=== PATIENT | female | born 1965 | race Hispanic/Latino ===

== ENCOUNTER 2018-01-13 23:42 | Emergency (ER) | payer BC ==
[2018-01-13] MEDS ORDERED: KETOROLAC 30 MG/ML INJ ONE (23:55)
[2018-01-13] MEDS ORDERED: PROMETHAZINE 25 MG/ML VIAL ONE (23:58)
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
[2018-01-14] MEDS ORDERED: MORPHINE 4 MG/ML SYR ONE (00:52)
[2018-01-14] MEDS ORDERED: ONDANSETRON 4 MG (ODT) TAB ONE (00:52)
--- NOTE | 2018-01-14 07:36 | RAD REPORT ---
EXAM DESCRIPTION: RAD - Wrist Right 3 View - 01/14/2018 12:54 am CLINICAL HISTORY: Arm pain, swelling COMPARISON: None. FINDINGS: A transverse fracture of the distal radius is present involving the radial styloid and art icular surface of the radius. Approximately 2 mm of distraction noted. There is no angulation deformi ty. No distal ulna fracture identifiable. There is no dislocation or periosteal reaction noted. No fo reign body or other soft tissue abnormality. IMPRESSION: Distal radius fracture involving the radial styloid and articular surface of the radius. Approximately 2 distraction along the radial styloid lateral cortical margin.
--- NOTE | 2018-01-14 07:37 | RAD REPORT ---
EXAM DESCRIPTION: RAD - Elbow Right 3 View - 01/14/2018 12:54 am CLINICAL HISTORY: Trauma, arm pain COMPARISON: None. FINDINGS: Distal radius fracture is present detailed on separate wrist report. Otherwise, no fractur e is identified and no elevated posterior fat pad. There is no dislocation or periosteal reaction not ed. No foreign body or other soft tissue abnormality. No other significant finding. IMPRESSION: Negative right elbow examination. Distal radius fracture is detailed on separate report.
== END 2018-01-14 01:34 | disposition home or self-care (01) ==
LOC: ER 23:42
PROC: 2W3CX1Z Immobilization of Right Lower Arm using Splint (ICD-10-PCS; principal; 2018-01-14)
DX: S52.531A Colles' fracture of right radius, initial encounter for closed fracture (principal); W18.30XA Fall on same level, unspecified, initial encounter; Y93.89 Activity, other specified; Y92.9 Unspecified place or not applicable; Z88.1 Allergy status to other antibiotic agents
CPT/HCPCS: 96372; 99284; J2550

== ENCOUNTER 2018-10-22 15:33 | Emergency (ER) | payer BC ==
--- OUTSIDE RECORDS SUMMARY | 2018-10-22 15:35 | XMS REPORT | Clinical Summary ---
:1965 Author Organization [facility] [employer] Address [address] [place] [address] Care Team Providers Name Role Phone Asked, No Pcp Primary Care Provider Unavailable Allergies Not on File Medications No known medications Active Problems No known active problems Encounters Date Type Specialty Care Team Description 12/05/2017 Office Visit Orthopedic Surgery Keith Slaughter II, Stress fracture of left foot, initial encounter (Primary Dx); Tenosynovitis of left foot; Ankle instability, left; Acute left ankle pain; Left foot pain after 10/21/2017 Social History Tobacco Use Types Packs/Day Years Used Date Never Assessed Sex Assigned at Date Recorded Not on file Job Start Date Occupation Industry Not on file Not on file Not on file Travel History Travel Start Travel End No recent travel history available. Last Filed Vital Signs Not on file Plan of Treatment Health Maintenance Due Date Last Done Comments CERVICAL CANCER SCREENING 1988 BREAST CANCER SCREENING 2017 COLON CANCER SCREENING 2017 SHINGLES VACCINES (1 of 2) 2017 INFLUENZA VACCINE 05/03/2018 Procedures Procedure Name Priority Date/Time Associated Diagnosis Comments XR ANKLE 3+ VW LEFT Routine 12/05/2017 4:14 PM Acute left ankle Results for this [facility] pain procedure are in the results section. XR FOOT 2 VW LEFT Routine 12/05/2017 4:13 PM Left foot pain Results for this [facility] procedure are in the results section. after 10/21/2017 Results XR Ankle 3+ Vw Left (12/05/2017 4:14 PM [facility]) Narrative Performed At Three-view images of the left ankle reveals no evidence of acute fracture [facility] or dislocation. Ankle mortise is congruent. Neutral talus first metatarsal alignment. Performing Organization Address City/State/Zipcode Phone Number [facility] [address] [place] [address] XR Foot 2 Vw Left (12/05/2017 4:13 PM [facility]) Narrative Performed At Bilateral weightbearing images of the feet reveals no evidence of acute [facility] fracture or dislocation. Bones well mineralized. Hallux valgus deformities appreciated bilaterally, right greater than left. Performing Organization Address City/State/Zipcode Phone Number [facility] [address] [place] [address] after 10/21/2017 Insurance Payer Benefit Plan / Group Subscriber ID Type Phone Address BCBS BCBS CHOICE PPO/FEDERAL EMPL PPO xxxxxxxxxxxx PPO ([place]) [place] [address] Advance Directives Patient has advance care planning documents on file. For more information, please contact:Remy Barker[address] [place] [address]
[2018-10-22] MEDS ORDERED: KETOROLAC 30 MG/ML INJ ONE (16:14)
--- NOTE | 2018-10-22 16:44 | RAD REPORT ---
EXAM DESCRIPTION: RAD - Hand Right 3 View - 10/22/2018 4:35 pm CLINICAL HISTORY: Slip and fall, pain in the fourth and fifth digit region COMPARISON: Right wrist January 2018. FINDINGS: No acute fracture deformity is identifiable. There is no dislocation or periosteal reactio n noted. IP joint degenerative changes are present without spurring or erosive component. Degenerati ve changes are present at the trapezium first metacarpal articulation. Slight widening of the scapholunate joint space seen. There is old radial styloid fracture. No air or foreign body in the soft tissues. IMPRESSION: No acute fracture confirmed on this study. Patient has degenerative change and old radial styloid fracture and widening of the scapholunate join t space that is also likely the sequela of the January 2018 injury.
--- NOTE | 2018-10-22 16:45 | ER ---
Nurse's Notes [facility] Name: Tracey Mckeon Age: 53 yrs Sex: Female : 1965 Arrival Date: 10/22/2018 Time: 15:36 Bed 30 Private MD: Diagnosis: Contusion of right hand Presentation: 10/22 15:45 Presenting complaint: Patient states: Reports trip and fall hitting right hand on aj concrete last night. Swelling and bruising to right hand. Transition of care: patient was not received from another setting of care. Onset of symptoms was October 21, 2018. Risk Assessment: Do you want to hurt yourself or someone else? Patient reports no desire to harm self or others. Initial Sepsis Screen: Does the patient meet any 2 criteria? No. Patient's initial sepsis screen is negative. Does the patient have a suspected source of infection? No. Patient's initial sepsis screen is negative. Care prior to arrival: None. 15:45 Method Of Arrival: Ambulatory 15:45 Acuity: ROSA 4 Triage Assessment: 15:46 General: Appears in no apparent distress. comfortable, Behavior is calm, cooperative, aj appropriate for age. Pain: Complains of pain in right hand. Neuro: Level of Consciousness is awake, alert, obeys commands, Oriented to person, place, time, situation, Appropriate for age. Respiratory: Airway is patent Respiratory effort is even, unlabored, Respiratory pattern is regular, symmetrical. Derm: Skin is intact, is healthy with good turgor, Skin is pink, warm \\T\\ dry. normal, Bruising that is brown, on right hand. Musculoskeletal: Swelling present in right hand. 16:00 Injury Description: contusion. 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 - Social history:: Smoking status: Patient uses tobacco products, smokes one-half pack cigarettes per day, Patient uses alcohol, admits to "couple of beers" a day. - Ebola Screening: : Patient negative for fever greater than or equal to 101.5 degrees Fahrenheit, and additional compatible Ebola Virus Disease symptoms Patient denies exposure to infectious person Patient denies travel to an Ebola-affected area in the 21 days before illness onset No symptoms or risks identified at this time. Screenin:55 Abuse screen: Denies threats or abuse. Nutritional screening: No deficits noted. tl3 Tuberculosis screening: No symptoms or risk factors identified. Fall Risk None identified. Assessment: 15:55 General: Appears in no apparent distress. well groomed, well developed, well nourished, tl3 Behavior is calm, cooperative, appropriate for age. Pain: Complains of pain in right hand. Neuro: Level of Consciousness is awake, alert, obeys commands, Oriented to person, place, time, situation, Appropriate for age. Cardiovascular: Capillary refill < 3 seconds in right fingers Patient's skin is warm and dry. Respiratory: Airway is patent Respiratory effort is even, unlabored, Respiratory pattern is regular, symmetrical. GI: No signs and/or symptoms were reported involving the gastrointestinal system. : No signs and/or symptoms were reported regarding the genitourinary system. EENT: No signs and/or symptoms were reported regarding the EENT system. Derm: No signs and/or symptoms reported regarding the dermatologic system. Musculoskeletal: Reports pain in right hand since last night, tripped on street curb and fell forward onto street. Right hand bruised and swollen, able to move fingers freely. Vital Signs: 15:46 BP 149 / 93; Pulse 73; Resp 20; Temp 98.1; Pulse Ox 100% on R/A; Weight 108.86 kg; aj Height 5 ft. 3 in. (160.02 cm); 17:04 BP 135 / 78; Pulse 78; Resp 18; Pulse Ox 100% on R/A; Pain 0/10; mg2 15:46 Body Mass Index 42.51 (108.86 kg, 160.02 cm) aj ED Course: 15:36 Patient arrived in ED. rg4 15:45 Triage completed. aj 15:46 Arm band placed on left wrist. Patient placed in an exam room. aj 15:48 Mahamed Leija MD is Attending Physician. tw4 15:55 Nandini Trevizo, HAVEN is Primary Nurse. tl3 15:55 ED physician to see patient. tl3 15:55 Patient has correct armband on for positive identification. Call light in reach. tl3 15:55 No provider procedures requiring assistance completed. Patient did not have IV access tl3 during this emergency room visit. 17:04 Velcro wrist splint applied to right wrist. mg2 Administered Medications: 16:09 Drug: TORadol 60 mg Route: IM; Site: left gluteus; mg2 16:47 Follow up: Response: No adverse reaction; Marked relief of symptoms mg2 Outcome: 16:45 Discharge ordered by . jason 17:05 Discharged to home ambulatory. mg2 17:05 Condition: stable 17:05 Discharge instructions given to patient, Instructed on discharge instructions, follow up and referral plans. medication usage, Demonstrated understanding of instructions, follow-up care, medications, splint care, Prescriptions given X 2. 17:12 Patient left the ED. mg2 Signatures: Elke Boss RN RN Ana Laura Lopez rg4 Mahamed Leija MD MD tw4 Nandini Trevizo RN RN tl3 Lloyd Graves RN RN mg2
--- NOTE | 2018-10-22 16:46 | EDPHYS ---
Physician Documentation [facility] Name: Tracey Mckeon Age: 53 yrs Sex: Female : 1965 Arrival Date: 10/22/2018 Time: 15:36 Bed 30 Private MD: ED Physician Mahamed Leija HPI: 10/22 16:49 This 53 yrs old Female presents to ER via Ambulatory with complaints of Hand tw4 Injury. 16:49 The patient or guardian reports a contusion, pain. The complaints affect the right hand tw4 diffusely. Context: The problem was sustained outdoors, resulted from a fall. Onset: The symptoms/episode began/occurred today. Modifying factors: The symptoms are alleviated by nothing, the symptoms are aggravated by movement. Associated signs and symptoms: The patient has no apparent associated signs or symptoms. Severity of symptoms: At their worst the symptoms were moderate, in the emergency department the symptoms are unchanged. The patient has not experienced similar symptoms in the past. 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 - Social history:: Smoking status: Patient uses tobacco products, smokes one-half pack cigarettes per day, Patient uses alcohol, admits to "couple of beers" a day. - Ebola Screening: : Patient negative for fever greater than or equal to 101.5 degrees Fahrenheit, and additional compatible Ebola Virus Disease symptoms Patient denies exposure to infectious person Patient denies travel to an Ebola-affected area in the 21 days before illness onset No symptoms or risks identified at this time. ROS: 16:49 Constitutional: Negative for fever, chills, and weight loss, Cardiovascular: Negative tw4 for chest pain, palpitations, and edema, Respiratory: Negative for shortness of breath, cough, wheezing, and pleuritic chest pain, Abdomen/GI: Negative for abdominal pain, nausea, vomiting, diarrhea, and constipation. 16:49 Neuro: Negative for headache, weakness, numbness, tingling, and seizure, Psych: Negative for depression, anxiety, suicide ideation, homicidal ideation, and hallucinations. 16:49 MS/extremity: Positive for contusion, pain, swelling, tenderness, of the dorsum of right hand. Exam: 16:49 Constitutional: This is a well developed, well nourished patient who is awake, alert, tw4 and in no acute distress. Head/Face: Normocephalic, atraumatic. Cardiovascular: Regular rate and rhythm with a normal S1 and S2. No gallops, murmurs, or rubs. Normal PMI, no JVD. No pulse deficits. Respiratory: Lungs have equal breath sounds bilaterally, clear to auscultation and percussion. No rales, rhonchi or wheezes noted. No increased work of breathing, no retractions or nasal flaring. Abdomen/GI: Soft, non-tender, with normal bowel sounds. No distension or tympany. No guarding or rebound. No evidence of tenderness throughout. 16:49 Musculoskeletal/extremity: Extremities: pain, swelling, tenderness. Vital Signs: 15:46 BP 149 / 93; Pulse 73; Resp 20; Temp 98.1; Pulse Ox 100% on R/A; Weight 108.86 kg; aj Height 5 ft. 3 in. (160.02 cm); 17:04 BP 135 / 78; Pulse 78; Resp 18; Pulse Ox 100% on R/A; Pain 0/10; mg2 15:46 Body Mass Index 42.51 (108.86 kg, 160.02 cm) aj MDM: 15:48 Patient medically screened. tw4 16:49 Differential diagnosis: dislocation, closed fracture, contusion, abrasion, tendonitis. tw4 Data reviewed: vital signs, nurses notes. Medication response: Toradol markedly relieved the patient's pain. Response to treatment: the patient's symptoms have markedly improved after treatment. Special discussion: I discussed with the patient/guardian in detail that at this point there is no indication for admission to the hospital. It is understood, however, that if the symptoms persist or worsen the patient needs to return immediately for re-evaluation. 10/22 15:59 Order name: Hand Right 3 View XRAY tw4 10/22 16:45 Order name: RAD EDMS 10/22 16:58 Order name: Wrist Splint; Complete Time: 16:58 mg2 Administered Medications: 16:09 Drug: TORadol 60 mg Route: IM; Site: left gluteus; mg2 16:47 Follow up: Response: No adverse reaction; Marked relief of symptoms mg2 Disposition: 10/22/18 16:45 Discharged to Home. Impression: Contusion of right hand. - Condition is Stable. - Discharge Instructions: Hand Contusion, Wovt-ti-Pfio. - Prescriptions for Ibuprofen 800 mg Oral Tablet - take 1 tablet by ORAL route every 8 hours As needed take with food; 30 tablet. Tylenol- Codeine #3 300-30 mg Oral Tablet - take 2 tablet by ORAL route every 6 hours As needed; 6 tablet. - Medication Reconciliation Form, Thank You Letter, Antibiotic Education, Prescription Opioid Use form. - Follow up: Private Physician; When: Upon discharge from the Emergency Department; Reason: If symptoms return, Recheck today's complaints, Continuance of care. - Problem is new. - Symptoms have improved. Signatures: Dispatcher [employer] Elke Lewis RN RN Mahamed Arnett MD MD tw4 Lloyd Graves RN RN mg2 Corrections: (The following items were deleted from the chart) 17:12 16:45 10/22/2018 16:45 Discharged to Home. Impression: Contusion of right hand. mg2 Condition is Stable. Forms are Medication Reconciliation Form, Thank You Letter, Antibiotic Education, Prescription Opioid Use. Follow up: Private Physician; When: Upon discharge from the Emergency Department; Reason: If symptoms return, Recheck today's complaints, Continuance of care. Problem is new. Symptoms have improved. tw4
== END 2018-10-22 17:12 | disposition home or self-care (01) ==
LOC: ER 15:33
DX: S60.221A Contusion of right hand, initial encounter (principal); W19.XXXA Unspecified fall, initial encounter; Y93.9 Activity, unspecified; Y92.89 Other specified places as the place of occurrence of the external cause; Z88.1 Allergy status to other antibiotic agents; F17.210 Nicotine dependence, cigarettes, uncomplicated

== ENCOUNTER 2020-04-12 07:37 | Emergency (ER) | payer BC, OTHER ==
--- OUTSIDE RECORDS SUMMARY | 2020-04-12 07:39 | XMS REPORT | Clinical Summary ---
:1965 Author Organization [facility] Address [address] [place] [id number] Care Team Providers Name Role Phone Asked, Pcp Primary Care Provider Unavailable Allergies Not on File Medications No known medications Active Problems No known active problems Social History Tobacco Use Types Packs/Day Years [...] CANCER SCREENING 1988 BREAST CANCER SCREENING 2017 COLONOSCOPY SCREENING 2017 SHINGLES VACCINES (#1) 2017 INFLUENZA VACCINE 05/03/2020 Results Not on fileafter 04/12/2019 (Home) [place] [address] Advance Directives For more information, please contact: [phone] Type Date Recorded Patient Lead Consultant Explanati on Advance Directives, Living Will and 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
--- NOTE | 2020-04-12 08:12 | ER ---
Nurse's Notes [facility] Name: Tracey Mckeon Age: 54 yrs Sex: Female : 1965 Arrival Date: 04/12/2020 Time: 07:39 Bed 15 Private MD: Diagnosis: Vulvovaginal ulceration and inflammation in diseases classified elsewhere Presentation: 04/12 07:50 Chief complaint: Patient states: recently changed toilet paper and soap, diagnosed with iw yeast infection and started diflucan on , no relief. Coronavirus screen: Proceed with normal triage. Patient denies a cough. Patient denies shortness of breath or difficulty breathing. Patient denies measured and/or subjective temperature greater than 100.4F prior to today's visit. Patient denies travel on a cruise ship or to a country the [facility] currently lists as an affected area. Patient denies contact with known and/or suspected case of COVID-19. Ebola Screen: Patient negative for fever greater than or equal to 101.5 degrees Fahrenheit, and additional compatible Ebola Virus Disease symptoms Patient denies exposure to infectious person. Patient denies travel to an Ebola-affected area in the 21 days before illness onset. No symptoms or risks identified at this time. Initial Sepsis Screen: Does the patient meet any 2 criteria? No. Patient's initial sepsis screen is negative. Does the patient have a suspected source of infection? No. Patient's initial sepsis screen is negative. Risk Assessment: Do you want to hurt yourself or someone else? Patient reports no desire to harm self or others. Onset of symptoms was April 05, 2020. 07:50 Method Of Arrival: Ambulatory iw 07:50 Acuity: ROSA 4 iw Historical: - Allergies: 07:54 Keflex; iw - Home Meds: 07:54 Omeprazole Oral [Active]; iw - PMHx: 07:54 None; iw - PSHx: 07:54 Hysterectomy; Right Wrist; Appendectomy; iw - Immunization history:: Adult Immunizations up to date. - Social history:: Smoking status: Patient/guardian denies using tobacco, Stopped _ months ago 5. - Family history:: not pertinent. - Hospitalizations: : No recent hospitalization is reported. Screenin:55 Abuse screen: Denies threats or abuse. Denies injuries from another. Nutritional iw screening: No deficits noted. Tuberculosis screening: No symptoms or risk factors identified. Fall Risk None identified. Assessment: 07:54 General: Appears in no apparent distress. Behavior is calm, cooperative. Pain: iw Complains of pain in groin. Neuro: Level of Consciousness is awake, alert, obeys commands, Oriented to person, place, time, situation, Moves all extremities. Full function. Cardiovascular: Patient's skin is warm and dry. Respiratory: Respiratory effort is even, unlabored, Respiratory pattern is regular, symmetrical. : Reports vaginal itching, yeast infection. Derm: Skin is intact, is healthy with good turgor. Musculoskeletal: Range of motion: intact in all extremities. 08:00 General: Appears in no apparent distress. Behavior is calm, cooperative. Pain: rb1 Complains of pain in pelvis. Neuro: Level of Consciousness is awake, alert, obeys commands, Oriented to person, place, time, situation. Cardiovascular: Capillary refill < 3 seconds Patient's skin is warm and dry. Respiratory: Airway is patent Respiratory effort is even, unlabored, Respiratory pattern is regular, symmetrical. GI: No signs and/or symptoms were reported involving the gastrointestinal system. : Reports vaginal itching, Swelling noted and redness noted to the labia. 08:25 Reassessment: Discharge pending shot time. rb1 Vital Signs: 07:50 BP 142 / 76; Pulse 74; Resp 16; Temp 98.0; Pulse Ox 97% on R/A; Weight 108.86 kg; iw Height 5 ft. 3 in. (160.02 cm); 07:50 Body Mass Index 42.51 (108.86 kg, 160.02 cm) iw ED Course: 07:39 Patient arrived in ED. as 07:39 Christopher Lundberg MD is Attending Physician. rn 07:53 Triage completed. iw 07:55 Patient has correct armband on for positive identification. iw 08:00 Arm band placed on right wrist. rb1 08:08 Madhuri Berkowitz, RN is Primary Nurse. rb1 08:38 No provider procedures requiring assistance completed. Patient did not have IV access rb1 during this emergency room visit. Administered Medications: 08:25 Drug: Decadron 10 mg Route: IM; Site: left deltoid; rb1 08:38 Follow up: Response: No adverse reaction rb1 Outcome: 08:12 Discharge ordered by . rn 08:38 Patient left the ED. rb1 08:38 Discharged to home ambulatory. rb1 08:38 Condition: stable 08:38 Discharge instructions given to patient, Instructed on discharge instructions, follow up and referral plans. medication usage, Demonstrated understanding of instructions, follow-up care, medications, Prescriptions given X Signatures: Holly Rivero Irene, RN RN iw Christopher Lundberg MD MD rn Barber, Rebecca, RN RN rb1 Corrections: (The following items were deleted from the chart) 08:51 08:51 Patient left the ED. rb1 rb1
--- NOTE | 2020-04-12 08:12 | EDPHYS ---
Physician Documentation [facility] Name: Tracey Mckeon Age: 54 yrs Sex: Female : 1965 Arrival Date: 04/12/2020 Time: 07:39 Bed 15 Private MD: ED Physician Christopher Lundberg HPI: 04/12 08:07 This 54 yrs old Female presents to ER via Ambulatory with complaints of rn Vaginal Problem. 08:07 The patient presents with vaginal swelling and pain. Onset: The symptoms/episode rn began/occurred 3 day(s) ago. Modifying factors: The symptoms are alleviated by. Associated signs and symptoms: Pertinent negatives: fever, hematuria, urinary frequency, vaginal bleeding, vaginal discharge. Severity of symptoms: At their worst the symptoms were moderate, in the emergency department the symptoms are unchanged. The patient has experienced similar episodes in the past. The patient has been recently seen by a physician:. Reports recently changed toilet paper/soap, and was swimming for a few days in a row, now has vaginal swelling/pain/itching, no discharge, reports seen by pcp and put on diflucan. Not improving, but also not getting worse. Not sexually active since december. No urinary problems. . Historical: - Allergies: 07:54 Keflex; iw - Home Meds: 07:54 Omeprazole Oral [Active]; iw - PMHx: 07:54 None; iw - PSHx: 07:54 Hysterectomy; Right Wrist; Appendectomy; iw - Immunization history:: Adult Immunizations up to date. - Social history:: Smoking status: Patient/guardian denies using tobacco, Stopped _ months ago 5. - Family history:: not pertinent. - Hospitalizations: : No recent hospitalization is reported. ROS: 08:07 Constitutional: Negative for fever, chills, and weight loss, Abdomen/GI: Negative for rn abdominal pain, nausea, vomiting, diarrhea, and constipation, : + vaginal swelling and itching Exam: 08:07 Constitutional: This is a well developed, well nourished patient who is awake, alert, rn and in no acute distress. Pelvic Exam: + swollen vulva and labia with skin breakdown, no fluctuance/abscess, no vaginal discharge, vaginal mucosa intact and non-inflamed. Vital Signs: 07:50 BP 142 / 76; Pulse 74; Resp 16; Temp 98.0; Pulse Ox 97% on R/A; Weight 108.86 kg; iw Height 5 ft. 3 in. (160.02 cm); 07:50 Body Mass Index 42.51 (108.86 kg, 160.02 cm) iw MDM: 07:39 Patient medically screened. rn 08:07 Differential diagnosis: vaginitis/vulvovaginitis. Data reviewed: vital signs, nurses rn notes, and as a result, I will discharge patient. Counseling: I had a detailed discussion with the patient and/or guardian regarding: the historical points, exam findings, and any diagnostic results supporting the discharge/admit diagnosis, the need for outpatient follow up, to return to the emergency department if symptoms worsen or persist or if there are any questions or concerns that arise at home. Special discussion: I discussed with the patient/guardian in detail that at this point there is no indication for admission to the hospital. It is understood, however, that if the symptoms persist or worsen the patient needs to return immediately for re-evaluation. ED course: Already on diflucan, will add steroids given most likely contact/irritant vulvovaginitis and not infective. Will change back to sensitive soap and f/u with [facility] if worsens. . Administered Medications: 08:25 Drug: Decadron 10 mg Route: IM; Site: left deltoid; rb1 08:38 Follow up: Response: No adverse reaction rb1 Disposition: 04/12/20 08:12 Discharged to Home. Impression: Vulvovaginal ulceration and inflammation in diseases classified elsewhere. - Condition is Stable. - Discharge Instructions: Vaginitis. - Prescriptions for Medrol (Riley) 4 mg Oral Tablets, Dose Pack - take 1 tablet by ORAL route as directed - follow package instructions; 1 packet. - Medication Reconciliation Form, Thank You Letter, Antibiotic Education, Prescription Opioid Use form. - Follow up: Private Physician; When: As needed; Reason: Recheck today's complaints, Re-evaluation by your physician. - Problem is new. - Symptoms are unchanged. Signatures: Ayse Nixon, RN RN Christopher Lundberg MD MD rn Barber, Rebecca, RN RN rb1 Corrections: (The following items were deleted from the chart) 08:51 08:12 04/12/2020 08:12 Discharged to Home. Impression: Vulvovaginal ulceration and rb1 inflammation in diseases classified elsewhere. Condition is Stable. Forms are Medication Reconciliation Form, Thank You Letter, Antibiotic Education, Prescription Opioid Use. Follow up: Private Physician; When: As needed; Reason: Recheck today's complaints, Re-evaluation by your physician. Problem is new. Symptoms are unchanged. rn
[2020-04-12] MEDS ORDERED: dexAMETHasone 10 MG/ML VIAL ONE (08:18)
[2020-04-12 09:14] VITALS: BP 142/76; TEMP 98; O2SAT 97
== END 2020-04-12 08:51 | disposition home or self-care (01) ==
LOC: ER 07:37
DX: R10.2 Pelvic and perineal pain (principal); N77.0 Ulceration of vulva in diseases classified elsewhere; Z88.1 Allergy status to other antibiotic agents
CPT/HCPCS: 96372; 99283; J1100

== ENCOUNTER 2023-05-11 06:40 | Day surgery (SDC) | payer BC ==
[2023-05-10 14:00] LABS: Potassium 3.7 mEq/L (3.5-5.1)
[2023-05-11] MEDS ORDERED: FENTANYL CITR 100 MCG/2 ML ONE (06:59)
[2023-05-11] MEDS ORDERED: KETOROLAC 30 MG/ML INJ ONE (06:59)
[2023-05-11] MEDS ORDERED: LIDOCAINE 2% MPF 5 ML VIAL ONE (06:59)
[2023-05-11] MEDS ORDERED: ONDANSETRON 4 MG/2 ML VIAL ONE ×2 (06:59→08:49)
[2023-05-11] MEDS ORDERED: propofoL 200 MG/20 ML VIAL IV ONE (06:59)
[2023-05-11] MEDS ORDERED: MIDAZOLAM HCL 2 MG/2 ML INJ ONE (06:59)
[2023-05-11] MEDS ORDERED: CEFAZOLIN SODIUM 2 GM/VIAL ONE (07:07)
[2023-05-11] MEDS: NA CHLORIDE 0.9% 1,000 ML ONE ×2 (07:10→07:21)
[2023-05-11] MEDS: BUPIVACAINE 0.25% PF 30 ML VIAL ONE ×2 (07:48→07:50)
[2023-05-11] MEDS ORDERED: CLINDAMYCIN 600MG/D5W 50 ML IV ONE (07:57)
[2023-05-11] MEDS ORDERED: Phenylephrine HCl 10 MG/ML 1 ML VIAL ONE (07:58)
--- NOTE | 2023-05-11 08:05 | P.OP ---
Preoperative diagnosis: Upper Back Sebaceous Cyst Postoperative diagnosis: Upper Back Sebaceous Cyst Primary procedure: Excision of Upper Back Sebaceous Cyst Anesthesia: GETA + Local Estimated blood loss: <5cc Specimen: Cyst Findings: ~ 4cm x 4cm sebaceous cyst of upper mid back into adipose Complications: None Transferred to: Recovery Room Condition: Good
--- NOTE | 2023-05-11 08:36 | OP ---
Date of Procedure: 05/11/2023 Surgeon: Golden Escalona MD, Preoperative Diagnosis: Upper back sebaceous cyst. Postoperative Diagnosis: Upper back sebaceous cyst. Procedure Performed: Excision of upper back sebaceous cyst. Anesthesia: General endotracheal plus local with 0.25% Marcaine. Estimated Blood Loss: Less than 5 cc. Specimens: Upper back cyst. Findings: Approximately 4 cm x 4 cm sebaceous cyst of the upper midback and adipose tissue. Complications: None. Disposition: The patient transferred to recovery room in good condition. Procedure In Detail: After informed consent was obtained, patient was brought to the operating room, prepped and draped in the usual sterile fashion. After adequate anesthesia was achieved, we made a curvilinear incision circumferentially around an area of the upper midback down through approximately 4.5 cm x 1 cm down to subcutaneous tissues. I then circumferentially dissected around a sebaceous s ac encompassing the entire sac and some adipose tissue around this. The cyst links them to the adipo se tissue. At this point, we removed in its entirety, sent off for pathologic examination. The area was copiously irrigated. Hemostasis was achieved with electrocautery. The wound was then packed wi th Kerlix soaked in Vashe damp to dry and a sterile dressing was placed over the top. Patient tolera golden the procedure well without evidence of complication, transferred to PACU in good condition. All counts w ere correct at the end of the case. KESHIA/CHIP Voice ID: [id number] Report ID: [id number]
[2023-05-11] MEDS: HYDROMORPHONE HCL 1 MG/ML INJ ONE ×2 (08:40→08:45)
[2023-05-11] MEDS ORDERED: HYDROMORPHONE HCL 1 MG/ML INJ ONE (09:04)
[2023-05-11] MEDS ORDERED: HYDROCODONE/APAP 7.5/325 MG TAB ONE (09:34)
[2023-05-11] MEDS ORDERED: COLLAGENASE 30 GM OINTMENT TOP ONE (09:42)
[2023-05-11] MEDS ORDERED: PROMETHAZINE INJ 25 MG/ML AMP ONE (09:48)
[2023-05-11] MEDS ORDERED: DIPHENHYDRAMINE 50 MG/ML VIAL ONE (10:26)
[2023-05-11 11:28] VITALS: BP 102/62; TEMP 97; O2SAT 96
--- NOTE | 2023-05-11 18:10 | EKG ---
Test Date: 2023-05-10 Test Time: 13:43:07 Expense Analyst: ABRAM MEASUREMENT RESULTS: Intervals: Rate: 80 CT: 148 QRSD: 96 QT: 402 QTc: 463 Newton: P: 57 CT: 148 QRS: 30 T: 63 INTERPRETIVE STATEMENTS: Normal sinus rhythm Incomplete right bundle branch block Nonspecific T wave abnormality Prolonged QT Abnormal ECG Compared to ECG 09/23/2011 20:21:12 Incomplete right bundle-branch block now present T-wave abnormality now present Prolonged QT interval now present Sinus bradycardia no longer present Electronically Signed On 05-11-23 18:09:12 CDT by Sid Pineda
== END 2023-05-11 10:35 | disposition home or self-care (01) ==
LOC: OR 06:40
PROVIDERS: ATTEND Surgery
PROC: 0JB70ZZ Excision of Back Subcutaneous Tissue and Fascia, Open Approach (ICD-10-PCS; principal; 2023-05-11 07:30)
DX: L72.0 Epidermal cyst (principal); I10 Essential (primary) hypertension; E78.00 Pure hypercholesterolemia, unspecified; E11.9 Type 2 diabetes mellitus without complications
CPT/HCPCS: 93005; 80048; 36415; 82947 ×2; 88304; 11404; J2550; J3590; J2704; J1200; J2371; J2001; J2250; J3010; J1170 ×2; J2405 ×2; J7030; 88305

== ENCOUNTER → 2023-11-06 | Emergency (ER) | payer OTHER ==
[~2023-11-06] MED LIST: CIPROFLOXACIN HCL 500 MG TAB ONE; DICYCLOMINE HCL 10 MG CAP ONE; HYDROMORPHONE HCL 1 MG/ML INJ ONE; IBUPROFEN 400 MG TAB ONE; METOCLOPRAMIDE 5 MG TAB ONE; NA CHLORIDE 0.9% 1,000 ML ONE; ONDANSETRON 4 MG/2 ML VIAL ONE; metroNIDAZOLE 500 MG TABLET ONE
[2023-11-06 17:39] LABS: Hematocrit 45.1 % (36.0-45.0); Lymphocytes % 24.3 % (15.3-44.8); MCV 85.8 fL (80-100); MPV 8.3 fL (7.6-11.3); Platelets 295 thou/uL (152-406); RBC Red Blood Cell Count 5.26 M/uL (3.86-4.86)
[2023-11-06 18:04] LABS: Albumin 3.6 g/dL (3.4-5.0); Bilirubin Total 0.5 mg/dL (0.2-1.0); Protein, Total 7.8 g/dL (6.4-8.2)
[2023-11-06 18:07] LABS: Potassium 3.9 mEq/L (3.5-5.1)
--- NOTE | 2023-11-06 19:16 | RAD REPORT ---
EXAM DESCRIPTION: CT - Abdomen Pelvis W Contrast - 11/06/2023 6:54 pm CLINICAL HISTORY: Abdominal pain COMPARISON: 2020 TECHNIQUE: Computed axial tomography of the abdomen pelvis was obtained. 100 cc Isovue-300 was admin istered intravenously. Oral contrast was not requested which limits evaluation of bowel and appendix All CT scans are performed using dose optimization technique as appropriate and may include automated exposure control or mA/KV adjustment according to patient size. FINDINGS: The liver, spleen, pancreas, adrenal and kidneys appear unremarkable. There is no evidence of diverticulitis. Hysterectomy. No adnexal mass. Abnormal appendix is not visualized 3.8 centimeter low to intermediate density mass within posterior subcutaneous tissue near the gluteal fold is unchanged and likely benign IMPRESSION: No acute abnormality is displayed.
[2023-11-06 19:34] LABS: Specific Gravity > 1.030 (1.005-1.030); Urine Bacteria <20 /HPF (<20); Urine Bilirubin NEGATIVE (Negative); Urine Blood Negative (Negative); Urine Clarity Clear (Clear); Urine Color Yellow (Yellow); Urine Glucose TRACE (Negative); Urine Mucus 3+ /HPF (None Seen); Urine Protein TRACE (Negative); Urine RBC <5 /HPF (None Seen); Urine Urobilinogen Normal (Normal); Urine pH 5.5 (5.0-7.0)
--- NOTE | 2023-11-06 20:10 | ER ---
Nurse's Notes [facility] Name: Tracey Mckeon Age: 58 yrs Sex: Female : 1965 Arrival Date: 11/06/2023 Time: 14:42 Bed 9 Private MD: Diagnosis: Infectious gastroenteritis and colitis, unspecified;Acute gastroenteritis, nausea vomiting diarrhea. Presentation: 11/06 15:04 Chief complaint: N/, abdominal cramping, and headache x 6 days. Coronavirus screen: hb Client presents with at least one sign or symptom that may indicate coronavirus-19. Provider contacted for isolation considerations. Ebola Screen: No symptoms or risks identified at this time. Initial Sepsis Screen: Does the patient meet any 2 criteria? No. Patient's initial sepsis screen is negative. Does the patient have a suspected source of infection? No. Patient's initial sepsis screen is negative. Risk Assessment: Do you want to hurt yourself or someone else? Patient reports no desire to harm self or others. Onset of symptoms was October 31, 2023. 15:04 Method Of Arrival: Ambulatory 15:04 Acuity: ROSA 3 Triage Assessment: 18:21 General: Appears uncomfortable, Behavior is calm, cooperative. Pain: Complains of pain tl4 in abdomen. EENT: No deficits noted. No signs and/or symptoms were reported regarding the EENT system. Neuro: No deficits noted. Cardiovascular: No deficits noted. Denies chest pain, diaphoresis, fatigue, lightheadedness, palpitations. Respiratory: No deficits noted. Breath sounds are clear bilaterally. Denies cough, shortness of breath. GI: Reports lower abdominal pain, cramping, diarrhea, nausea. : No deficits noted. No signs and/or symptoms were reported regarding the genitourinary system. Derm: No deficits noted. No signs and/or symptoms reported regarding the dermatologic system. Musculoskeletal: No deficits noted. No signs and/or symptoms reported regarding the musculoskeletal system. Historical: - Allergies: 15:06 Keflex; hb 15:06 Sulfa (Sulfonamide Antibiotics); hb - PMHx: 18:25 None; tl4 - Immunization history:: Adult Immunizations unknown. - Social history:: Smoking status: Patient denies any tobacco usage or history of. Screenin:24 [facility] Fall Risk Assessment (Adult) History of falling in the last 3 months, tl4 including since admission No falls in past 3 months (0 pts) Confusion or Disorientation No (0 pts) Intoxicated or Sedated No (0 pts) Impaired Gait No (0 pts) Mobility Assist Device Used No (0 pt) Altered Elimination No (0 pt) Score/Fall Risk Level 0 - 2 = Low Risk. 18:25 Abuse screen: Denies threats or abuse. Denies injuries from another. Nutritional tl4 screening: No deficits noted. Tuberculosis screening: No symptoms or risk factors identified. Assessment: 18:23 Reassessment: No changes from previously documented assessment. Patient and/or family tl4 updated on plan of care and expected duration. Pain level reassessed. Patient is alert, oriented x 3, equal unlabored respirations, skin warm/dry/pink. 18:23 Reassessment: Bedside commode in room for pt convenience. Pt denies any needs at this tl4 time. 19:23 Reassessment: Patient and/or family updated on plan of care and expected duration. Pain tl4 level reassessed. Patient is alert, oriented x 3, equal unlabored respirations, skin warm/dry/pink. Patient states symptoms have improved. Vital Signs: 15:04 BP 131 / 86; Pulse 79; Resp 16; Temp 98.3(O); Pulse Ox 100% on R/A; Weight 95.71 kg; hb Height 5 ft. 2 in. ; Pain 8/10; 18:23 BP 117 / 60; Pulse 73; Resp 16; Pulse Ox 100% on R/A; Pain 10/10; tl4 19:22 BP 122 / 65; Pulse 74; Resp 16; Pulse Ox 100% ; Pain 4/10; tl4 20:34 BP 126 / 73; Pulse 85; Resp 16; Pulse Ox 98% on R/A; Pain 4/10; tl4 15:04 Body Mass Index 38.59 (95.71 kg, 157.48 cm) hb 15:04 Pain Scale: Adult hb 18:23 Pain Scale: Adult tl4 19:22 Pain Scale: Adult tl4 20:34 Pain Scale: Adult tl4 Vitals: 18:23 Cardiac Rhythm Assessment Regular. tl4 [place] Coma Score: 18:23 Eye Response: spontaneous(4). Motor Response: obeys commands(6). Verbal Response: tl4 oriented(5). Total: 15. 20:34 Eye Response: spontaneous(4). Motor Response: obeys commands(6). Verbal Response: tl4 oriented(5). Total: 15. ED Course: 14:45 Patient arrived in ED. im 15:06 Triage completed. hb 15:06 Arm band placed on. hb 15:09 Kaylin Manjarrez MD is Attending Physician. sp3 17:41 CBC with Diff Sent. em1 17:41 CMP Sent. em1 17:41 Lipase Sent. em1 17:41 Lactate w/ 2H reflex if indic. Sent. em1 17:42 Initial lab(s) drawn, by me, sent to lab. Inserted saline lock: 20 gauge in right em1 forearm, using aseptic technique. Blood collected. 17:51 Diego Fischer is Primary Nurse. tl4 18:24 Patient has correct armband on for positive identification. Placed in gown. Bed in low tl4 position. Call light in reach. Provided Education on: ed process, fall prevention. Client placed on continuous cardiac and pulse oximetry monitoring. NIBP monitoring applied. Door closed. Noise minimized. Lights dimmed. Moved to private room. Warm blanket given. Pillow given. Verbal reassurance given. bedside commode in room. 18:25 No provider procedures requiring assistance completed. tl4 18:56 CT Abd/Pelvis - IV Contrast Only In Process Unspecified. EDMS 19:24 Urinalysis w/ reflexes Sent. tl4 20:01 Attending Physician role handed off by Kaylin Manjarrez MD sp4 20:01 Naveen Ramos MD is Attending Physician. sp4 20:35 IV discontinued, intact, bleeding controlled, No redness/swelling at site. Pressure tl4 dressing applied. Administered Medications: 18:26 Drug: NS 0.9% IV 1000 ml IV at 1 bolus Per protocol; 1000 mL bolus Route: IV; Rate: 1 tl4 bolus; Site: right forearm; Delivery: Primary tubing; 19:23 Follow up: Response: No adverse reaction; IV Status: Completed infusion; IV Intake: tl4 1000ml 18:26 Drug: Ondansetron IVP 4 mg IVP once; over 2 minutes Route: IVP; Infused Over: 2 mins; tl4 Site: right forearm; 19:23 Follow up: Response: No adverse reaction; Nausea is decreased tl4 18:27 Drug: HYDROmorphone IVP 1 mg IVP once Route: IVP; Infused Over: 2 mins; Site: right tl4 forearm; 19:23 Follow up: Response: No adverse reaction; Pain is decreased tl4 20:20 Drug: Dicyclomine PO 20 mg PO once Route: PO; tl4 20:37 Follow up: Response: No adverse reaction tl4 20:20 Drug: Ibuprofen PO 800 mg PO once Route: PO; tl4 20:36 Follow up: Response: No adverse reaction tl4 20:20 Drug: MetoCLOPramide PO 10 mg PO once Route: PO; tl4 20:36 Follow up: Response: No adverse reaction tl4 20:20 Drug: metroNIDAZOLE PO 500 mg PO once Route: PO; tl4 20:36 Follow up: Response: No adverse reaction tl4 20:20 Drug: Ciprofloxacin PO 500 mg PO once Route: PO; tl4 20:36 Follow up: Response: No adverse reaction tl4 Medication: 18:24 VIS not applicable for this client. tl4 Intake: 19:23 IV: 1000ml; Total: 1000ml. tl4 Outcome: 20:10 Discharge ordered by . sp4 20:35 Discharged to home ambulatory, tl4 20:35 Condition: stable 20:35 Discharge instructions given to patient, Instructed on discharge instructions, follow up and referral plans. medication usage, Demonstrated understanding of instructions, follow-up care, medications, Prescriptions given X 5 20:37 Patient left the ED. tl4 Signatures: Dispatcher [employer] Rufus Ulloa em1 Camilla Quinteros RN RN Kaylin Wade MD MD sp3 Naveen Ramos MD MD sp4 Sania Tucker Toni tl4
--- NOTE | 2023-11-06 20:10 | EDPHYS ---
Physician Documentation [facility] Name: Tracey Mckeon Age: 58 yrs Sex: Female : 1965 Arrival Date: 11/06/2023 Time: 14:42 Bed 9 Private MD: ED Physician Naveen Ramos HPI: 11/06 16:59 This 58 yrs old Female presents to ER via Ambulatory with complaints of sp3 Diarrhea, Nausea, Abdominal Cramping, Headache, Dizziness. 16:59 58-year-old female with a history of occasional migraines, diabetes, hypertension sp3 presents to the ED with chief complaint nausea, vomiting, diarrhea for 6 days now with abdominal cramping. Patient states that is just watery at this point and she feels severely dehydrated. Urine output is decreased. She has been having headache now as well. She denies fever, chest pain, shortness of breath, known sick contacts, travel history, back pain, syncope, near syncope, rash, or any other signs or symptoms on ROS at this time.. Historical: - Allergies: 15:06 Keflex; hb 15:06 Sulfa (Sulfonamide Antibiotics); hb - PMHx: 18:25 None; tl4 - Immunization history:: Adult Immunizations unknown. - Social history:: Smoking status: Patient denies any tobacco usage or history of. ROS: 17:06 Constitutional: Negative for fever, chills, and weight loss, Eyes: Negative for injury, sp3 pain, redness, and discharge, ENT: Negative for injury, pain, and discharge, Neck: Negative for injury, pain, and swelling, Cardiovascular: Negative for chest pain, palpitations, and edema, Respiratory: Negative for shortness of breath, cough, wheezing, and pleuritic chest pain, Back: Negative for injury and pain, MS/Extremity: Negative for injury and deformity, Skin: Negative for injury, rash, and discoloration, Psych: Negative for depression, anxiety, suicide ideation, homicidal ideation, and hallucinations, Allergy/Immunology: Negative for hives, rash, and allergies, Endocrine: Negative for neck swelling, polydipsia, polyuria, polyphagia, and marked weight changes, 17:06 All other systems are negative, Exam: 17:06 Constitutional: This is a well developed, well nourished patient who is awake, alert, sp3 and in no acute distress. Head/Face: Normocephalic, atraumatic. Eyes: Pupils equal round and reactive to light, extra-ocular motions intact. Lids and lashes normal. Conjunctiva and sclera are non-icteric and not injected. Cornea within normal limits. Periorbital areas with no swelling, redness, or edema. Neck: Trachea midline, no thyromegaly or masses palpated, and no cervical lymphadenopathy. Supple, full range of motion without nuchal rigidity, or vertebral point tenderness. No Meningismus. Chest/axilla: Normal chest wall appearance and motion. Nontender with no deformity. No lesions are appreciated. Cardiovascular: Regular rate and rhythm with a normal S1 and S2. No gallops, murmurs, or rubs. Normal PMI, no JVD. No pulse deficits. Respiratory: Lungs have equal breath sounds bilaterally, clear to auscultation and percussion. No rales, rhonchi or wheezes noted. No increased work of breathing, no retractions or nasal flaring. Back: No spinal tenderness. No costovertebral tenderness. Full range of motion. Skin: Warm, dry with normal turgor. Normal color with no rashes, no lesions, and no evidence of cellulitis. MS/ Extremity: Pulses equal, no cyanosis. Neurovascular intact. Full, normal range of motion. Neuro: Awake and alert, GCS 15, oriented to person, place, time, and situation. Cranial nerves II-XII grossly intact. Motor strength 5/5 in all extremities. Sensory grossly intact. Cerebellar exam normal. Normal gait. Vital Signs: 15:04 BP 131 / 86; Pulse 79; Resp 16; Temp 98.3(O); Pulse Ox 100% on R/A; Weight 95.71 kg; hb Height 5 ft. 2 in. ; Pain 8/10; 18:23 BP 117 / 60; Pulse 73; Resp 16; Pulse Ox 100% on R/A; Pain 10/10; tl4 19:22 BP 122 / 65; Pulse 74; Resp 16; Pulse Ox 100% ; Pain 4/10; tl4 20:34 BP 126 / 73; Pulse 85; Resp 16; Pulse Ox 98% on R/A; Pain 4/10; tl4 15:04 Body Mass Index 38.59 (95.71 kg, 157.48 cm) hb 15:04 Pain Scale: Adult hb 18:23 Pain Scale: Adult tl4 19:22 Pain Scale: Adult tl4 20:34 Pain Scale: Adult tl4 [place] Coma Score: 18:23 Eye Response: spontaneous(4). Motor Response: obeys commands(6). Verbal Response: tl4 oriented(5). Total: 15. 20:34 Eye Response: spontaneous(4). Motor Response: obeys commands(6). Verbal Response: tl4 oriented(5). Total: 15. MDM: 16:51 Patient medically screened. sp3 17:06 Data reviewed: vital signs, nurses notes, lab test result(s), radiologic studies. ED sp3 course: 58-year-old female with now 1 week of GI symptoms as outlined above. Differential diagnosis includes gastroenteritis bacterial and viral in nature, other enteritis, adhesions, electrolyte imbalance, abdominal cramping, among others. I am not highly suspicious for vascular pathology/aortic pathology, pathology and patient has had a total hysterectomy. Workup will include laboratory values, IV fluids, and CT scan of the abdomen pelvis with IV contrast. Dilaudid and Zofran for pain control. Disposition pending workup and patient course.. 18:30 ED course: Laboratory values reviewed and are all within normal limits. UA and CT scan sp3 pending. Patient will be signed out to night physician for reevaluation and final disposition.. 20:07 Differential diagnosis: Nonspecific abd pain, gastritis, diverticulitis, viral sp4 gastroenteritis, gastroenteritis. Consideration of Admission/Observation Escalation of care including admission/observation considered. ED course: Patient presents with nausea vomiting diarrhea headache dizziness. Possibly acute gastroenteritis, CT is negative, patient stable for discharge home with Cipro Flagyl p.o. Will provide Bentyl and Reglan for symptom control also Lomotil . Advise clear liquid diet for 24 hours. . 11/06 16:58 Order name: CBC with Diff; Complete Time: 18:27 sp3 11/06 16:58 Order name: CMP; Complete Time: 18:27 sp3 11/06 16:58 Order name: Lipase; Complete Time: 18:27 sp3 11/06 16:58 Order name: Urinalysis w/ reflexes; Complete Time: 20:01 sp3 11/06 16:58 Order name: Lactate w/ 2H reflex if indic.; Complete Time: 18:27 sp3 11/06 16:58 Order name: CT Abd/Pelvis - IV Contrast Only; Complete Time: 20:01 sp3 11/06 16:58 Order name: IV Saline Lock; Complete Time: 17:41 sp3 11/06 16:58 Order name: Labs collected and sent; Complete Time: 17:41 sp3 Administered Medications: 18:26 Drug: NS 0.9% IV 1000 ml IV at 1 bolus Per protocol; 1000 mL bolus Route: IV; Rate: 1 tl4 bolus; Site: right forearm; Delivery: Primary tubing; 19:23 Follow up: Response: No adverse reaction; IV Status: Completed infusion; IV Intake: tl4 1000ml 18:26 Drug: Ondansetron IVP 4 mg IVP once; over 2 minutes Route: IVP; Infused Over: 2 mins; tl4 Site: right forearm; 19:23 Follow up: Response: No adverse reaction; Nausea is decreased tl4 18:27 Drug: HYDROmorphone IVP 1 mg IVP once Route: IVP; Infused Over: 2 mins; Site: right tl4 forearm; 19:23 Follow up: Response: No adverse reaction; Pain is decreased tl4 20:20 Drug: Dicyclomine PO 20 mg PO once Route: PO; tl4 20:37 Follow up: Response: No adverse reaction tl4 20:20 Drug: Ibuprofen PO 800 mg PO once Route: PO; tl4 20:36 Follow up: Response: No adverse reaction tl4 20:20 Drug: MetoCLOPramide PO 10 mg PO once Route: PO; tl4 20:36 Follow up: Response: No adverse reaction tl4 20:20 Drug: metroNIDAZOLE PO 500 mg PO once Route: PO; tl4 20:36 Follow up: Response: No adverse reaction tl4 20:20 Drug: Ciprofloxacin PO 500 mg PO once Route: PO; tl4 20:36 Follow up: Response: No adverse reaction tl4 Disposition Summary: 11/06/23 20:10 Discharge Ordered Notes: Clear liquid diet advised for next 24 hours Location: Home sp4 Problem: new sp4 Symptoms: have improved sp4 Condition: Stable sp4 Diagnosis - Infectious gastroenteritis and colitis, unspecified sp4 - Acute gastroenteritis, nausea vomiting diarrhea. sp4 Followup: sp4 - With: Private Physician - When: 7 - 10 days - Reason: Recheck today's complaints Discharge Instructions: - Discharge Summary Sheet sp4 - Diarrhea, Adult sp4 Forms: - Patient Portal Instructions sp4 Prescriptions: - Cipro 500 mg Oral Tablet - take 1 tablet ORAL route every 12 hours for 10 days; 20 tablet; Refills: 0, sp4 Product Selection Permitted - Flagyl 500 mg Oral Tablet - take 1 tablet ORAL route every 8 hours for 10 days; 30 tablet; Refills: 0, sp4 Product Selection Permitted - Reglan 10 mg Oral tablet - take 1 tablet ORAL route every 6 hours PRN nausea; 30 tablet; Refills: 0, sp4 Product Selection Permitted - Lomotil 2.5-0.025 mg Oral tablet - take 1 tablet ORAL route every 6 hours As needed PRN diarrhea; 30 tablet; sp4 Refills: 0, Product Selection Permitted - dicyclomine 10 mg Oral capsule - take 1 capsule ORAL route every 6 hours PRN abdominal cramps; 30 capsule; sp4 Refills: 0, Product Selection Permitted Signatures: Dispatcher [employer] Camilla Magallanes, HAVEN RN Kaylin Wade MD MD sp3 Naveen Ramos MD MD sp4 Diego Fischer 4
[2023-11-07 00:58] VITALS: BP 126/73; TEMP 98.3; O2SAT 98
== END ==
LOC: ER 14:42
DX: A09 Infectious gastroenteritis and colitis, unspecified (principal); Z88.1 Allergy status to other antibiotic agents; Z88.2 Allergy status to sulfonamides
CPT/HCPCS: 85025; 81001; 36415; 83605; 83690; 80053; 74177; Q9967; J1170; J2405; J7030

== ENCOUNTER 2024-11-15 13:24 | Emergency (ER) | payer OTHER ==
[2024-11-15] MEDS ORDERED: DIPHENHYDRAMINE 50 MG/ML VIAL ONE (13:35)
[2024-11-15] MEDS ORDERED: METOCLOPRAMIDE 10 MG/2mL INJ ONE (13:35)
[2024-11-15] MEDS ORDERED: KETOROLAC 30 MG/ML INJ ONE (13:35)
[2024-11-15] MEDS ORDERED: NA CHLORIDE 0.9% 50 ML ONE (13:36)
--- NOTE | 2024-11-15 15:27 | ER ---
Nurse's Notes [facility] Name: Tracey Mckeon Age: 59 yrs Sex: Female : 1965 Arrival Date: 11/15/2024 Time: 13:24 Bed 5 Private MD: Diagnosis: Migraine without aura, not intractable, with status migrainosus Presentation: 11/15 13:35 Chief complaint: Patient states: LEI, not sleeping well, fatigue, nausea, dizzy for past ll1 3 days. States it started after getting a flu and shingles vaccine on Tuesday. Coronavirus screen: Client denies travel out of the [place] in the last 14 days. fatigue, headache, nausea, Client presents with at least one sign or symptom that may indicate coronavirus-19. Standard/surgical mask placed on the client. Ebola Screen: Patient denies travel to an Ebola-affected area in the 21 days before illness onset. Initial Sepsis Screen: Does the patient meet any 2 criteria? No. Patient's initial sepsis screen is negative. Does the patient have a suspected source of infection? No. Patient's initial sepsis screen is negative. Risk Assessment: Do you want to hurt yourself or someone else? Patient reports no desire to harm self or others. Onset of symptoms was November 13, 2024. 13:35 Method Of Arrival: Ambulatory ll1 13:35 Acuity: ROSA 3 ll1 Triage Assessment: 13:36 General: Appears distressed, uncomfortable, Behavior is calm, cooperative, appropriate ll1 for age, Reports fatigue for. Pain: Complains of pain in head Pain currently is 10 out of 10 on a pain scale. Quality of pain is described as aching, throbbing, Pain began 2-3 days ago. Also complains of nausea, inability to work, sleeplessness. Neuro: Reports dizziness, headache a syncopal episode. GI: Reports nausea. Historical: - Allergies: 13:27 Keflex; ll1 13:27 Sulfa (Sulfonamide Antibiotics); ll1 - PMHx: 13:27 Diabetes mellitus; Hypercholesterolemia; ll1 13:34 Hypertensive disorder; Migraine; ll1 - Immunization history:: Adult Immunizations up to date. - Infectious Disease History:: Denies. - Social history:: Smoking status: Patient denies any tobacco usage or history of. Screenin:47 [facility] Fall Risk Assessment (Adult) History of falling in the last 3 months, kc6 including since admission No falls in past 3 months (0 pts) Confusion or Disorientation No (0 pts) Intoxicated or Sedated No (0 pts) Impaired Gait No (0 pts) Mobility Assist Device Used No (0 pt) Altered Elimination No (0 pt) Score/Fall Risk Level 0 - 2 = Low Risk Oriented to surroundings, Maintained a safe environment, Educated pt \T\ family on fall prevention, incl call for assistance when getting out of bed. Abuse screen: Denies threats or abuse. Denies injuries from another. Nutritional screening: No deficits noted. Tuberculosis screening: No symptoms or risk factors identified. Assessment: 14:00 General: Appears in no apparent distress. Behavior is calm, cooperative. Pain: ph Complains of pain in HEADACHE. Neuro: Level of Consciousness is awake, alert, obeys commands, Oriented to person, place, time, situation. Cardiovascular: Capillary refill < 3 seconds in bilateral fingers Patient's skin is warm and dry. Respiratory: Airway is patent Respiratory effort is even, unlabored. GI: Reports nausea. Derm: Skin is pink, warm \T\ dry. 16:15 Reassessment: Patient appears in no apparent distress at this time. Patient and/or ph family updated on plan of care and expected duration. Pain level reassessed. Patient is alert, oriented x 3, equal unlabored respirations, skin warm/dry/pink. Patient states feeling better. Patient states symptoms have improved. Vital Signs: 13:35 BP 131 / 67; Pulse 77; Resp 17; Temp 97.6; Pulse Ox 98% on R/A; Weight 94.8 kg; Height ll1 5 ft. 2 in. ; Pain 10/10; 16:15 BP 128 / 78; Pulse 71; Resp 18; Temp 98; Pulse Ox 99% on R/A; ph 13:35 Body Mass Index 38.23 (94.80 kg, 157.48 cm) ll1 13:35 Pain Scale: Adult ll1 [place] Coma Score: 15:27 Eye Response: spontaneous(4). Motor Response: obeys commands(6). Verbal Response: sb4 oriented(5). Total: 15. ED Course: 13:26 Patient arrived in ED. mr 13:26 Amarilis Mckeon PA-C is PHCP. sb4 13:26 Julio aCvazos MD is Attending Physician. sb4 13:26 Arm band placed on Patient placed in an exam room, on a stretcher. ll1 13:36 Triage completed. ll1 13:47 Ana Cooper, HAVEN is Primary Nurse. kc6 13:47 Patient has correct armband on for positive identification. Bed in low position. Call kc6 light in reach. Side rails up X2. Pulse ox on. NIBP on. Door closed. Noise minimized. Lights dimmed. Warm blanket given. Pillow given. 13:47 Inserted saline lock: 22 gauge in left antecubital area, using aseptic technique. kc6 Flushed with 10 mL NS. Patient maintains SpO2 saturation greater than 95% on room air. 16:16 No provider procedures requiring assistance completed. IV discontinued, intact, ph bleeding controlled, No redness/swelling at site. Pressure dressing applied. Administered Medications: 13:50 Drug: NS 0.9% IV 1000 ml IV at 1000 ml once; to be given as a bolus over 60 minutes ph Route: IV; Rate: 1000 ml; Site: left antecubital; 15:00 Follow up: Response: No adverse reaction; IV Status: Completed infusion ph 13:51 Drug: Ketorolac IVP 15 mg IVP once Route: IVP; Site: left antecubital; ph 16:17 Follow up: Response: No adverse reaction ph 13:51 Drug: metoCLOPramide IVP 10 mg IVP once; over 1 to 2 minutes Route: IVP; Site: left ph antecubital; 16:17 Follow up: Response: No adverse reaction ph 13:51 Drug: diphenhydrAMINE IVP 25 mg IVP once Route: IVP; Site: left antecubital; ph 16:17 Follow up: Response: No adverse reaction ph Medication: 16:16 VIS not applicable for this client. ph Outcome: 15:27 Discharge ordered by . sb4 16:16 Discharged to home ambulatory, with family, ph 16:16 Condition: good 16:16 Discharge instructions given to patient, Instructed on discharge instructions, follow up and referral plans. medication usage, Demonstrated understanding of instructions, follow-up care, medications, Prescriptions given X 2, 16:17 Patient left the ED. ph Signatures: Abiola Zhou, Maddison Webster, RN RN ph Angela Hullsay, RN RN ll1 Ana Cooper, RN RN kc6 Amarilsi Mckeon, DESEAN PACandido sb4
--- NOTE | 2024-11-15 15:27 | EDPHYS ---
Physician Documentation [facility] Name: Tracey Mckeon Age: 59 yrs Sex: Female : 1965 Arrival Date: 11/15/2024 Time: 13:24 Bed 5 Private MD: ED Physician Julio Cavazos HPI: 11/15 13:34 This 59 yrs old Female presents to ER via Unassigned with complaints of sb4 Headache, Nausea. 13:34 Patient states that she received a shingles and influenza vaccine last week and has had sb4 a migraine since. She states that she has taken Excedrin every day without relief. She states that she also feels nauseated, dizzy, and dehydrated. Does report a history of migraines, but they usually resolve quicker than this. Denies any numbness or tingling, difficulty speaking or swallowing. Historical: - Allergies: 13:27 Keflex; ll1 13:27 Sulfa (Sulfonamide Antibiotics); ll1 - PMHx: 13:27 Diabetes mellitus; Hypercholesterolemia; ll1 13:34 Hypertensive disorder; Migraine; ll1 - Immunization history:: Adult Immunizations up to date. - Infectious Disease History:: Denies. - Social history:: Smoking status: Patient denies any tobacco usage or history of. ROS: 13:34 Constitutional: Negative for fever, chills, and weight loss, sb4 13:34 Abdomen/GI: Positive for nausea, 13:34 Neuro: Positive for dizziness, headache, 13:34 All other systems are negative, Exam: 13:37 Head/Face: Normocephalic, atraumatic. Eyes: Extra-ocular motions intact. Periorbital sb4 areas with no swelling, redness, or edema. ENT: Mucous membranes moist. Cardiovascular: Regular rate and rhythm with a normal S1 and S2. Respiratory: No increased work of breathing, no retractions or nasal flaring. Abdomen/GI: Soft, non-tender, no distension. Skin: Warm, dry with normal turgor. Normal color with no rashes, no lesions, and no evidence of cellulitis. MS/ Extremity: Pulses equal, no cyanosis. Neurovascular intact. Full, normal range of motion. Neuro: Awake and alert, GCS 15, oriented to person, place, time, and situation. Motor strength 5/5 in all extremities. Sensory grossly intact. 13:37 Constitutional: The patient appears in no acute distress, alert, awake, Vital Signs: 13:35 BP 131 / 67; Pulse 77; Resp 17; Temp 97.6; Pulse Ox 98% on R/A; Weight 94.8 kg; Height ll1 5 ft. 2 in. ; Pain 10/10; 16:15 BP 128 / 78; Pulse 71; Resp 18; Temp 98; Pulse Ox 99% on R/A; ph 13:35 Body Mass Index 38.23 (94.80 kg, 157.48 cm) ll1 13:35 Pain Scale: Adult ll1 Babb Coma Score: 15:27 Eye Response: spontaneous(4). Motor Response: obeys commands(6). Verbal Response: sb4 oriented(5). Total: 15. MDM: 13:26 Medical Screening Exam initiated sb4 15:27 Data reviewed: vital signs, nurses notes, and as a result, I will discharge patient. sb4 Counseling: I had a detailed discussion with the patient and/or guardian regarding the historical points, exam findings, and any diagnostic results supporting the discharge/admit diagnosis, the need for outpatient follow up, for definitive care, to return to the emergency department if symptoms worsen or persist or if there are any questions or concerns that arise at home. 11/15 13:32 Order name: IV Start; Complete Time: 13:47 sb4 Administered Medications: 13:50 Drug: NS 0.9% IV 1000 ml IV at 1000 ml once; to be given as a bolus over 60 minutes ph Route: IV; Rate: 1000 ml; Site: left antecubital; 15:00 Follow up: Response: No adverse reaction; IV Status: Completed infusion ph 13:51 Drug: Ketorolac IVP 15 mg IVP once Route: IVP; Site: left antecubital; ph 16:17 Follow up: Response: No adverse reaction ph 13:51 Drug: metoCLOPramide IVP 10 mg IVP once; over 1 to 2 minutes Route: IVP; Site: left ph antecubital; 16:17 Follow up: Response: No adverse reaction ph 13:51 Drug: diphenhydrAMINE IVP 25 mg IVP once Route: IVP; Site: left antecubital; ph 16:17 Follow up: Response: No adverse reaction ph Disposition Summary: 11/15/24 15:27 Discharge Ordered Notes: Location: Home sb4 Problem: new sb4 Symptoms: have improved sb4 Condition: Stable sb4 Diagnosis - Migraine without aura, not intractable, with status migrainosus sb4 Followup: sb4 - With: Emergency Department - When: As needed - Reason: Worsening of condition Discharge Instructions: - Discharge Summary Sheet sb4 - Migraine Headache, [id number] sb4 Forms: - Medication Reconciliation Form sb4 - Patient Portal Instructions sb4 - Leadership Thank You Letter sb4 Prescriptions: - ketorolac 10 mg Oral tablet - take 1 tablet ORAL route every 4 to 6 hours as needed for pain; do not exceed 4 sb4 doses per 24 hours; maximum total duration of 3 days; 12 tablet; Refills: 0, Product Selection Permitted - ondansetron 8 mg Oral Tablet,disintegrating - take 1 tablet ORAL route every 8 hours As needed; 10 tablet; Refills: 0, sb4 Product Selection Permitted Addendum: 11/18/2024 07:52 I was immediately available for consultation during this patient's visit. I did not e c2 personally see the patient or discuss the patient with the FERNANDO. . Signatures: Maddisno Pop, RN RN ph Robert Hull RN RN ll1 Amarilis Mckeon PA-C PA-C sb4 Julio Cavazos MD MD ec2
[2024-11-15 16:26] VITALS: BP 128/78; TEMP 98; O2SAT 99
== END 2024-11-15 16:17 | disposition home or self-care (01) ==
LOC: ER 13:24
DX: G43.001 Migraine without aura, not intractable, with status migrainosus (principal)
CPT/HCPCS: 96361; 96375; 96374; 99284; J2765; J1200

== ENCOUNTER 2025-02-12 07:31 | Emergency (ER) | payer OTHER ==
[2025-02-12] MEDS ORDERED: METHYLPREDNISOLONE 125 MG INJ ONE (07:51)
[2025-02-12] MEDS ORDERED: hydrOXYzine HCL 25 MG TAB ONE (07:58)
[2025-02-12] MEDS ORDERED: HYDROCODONE/APAP 5/325 MG TAB ONE (07:59)
--- NOTE | 2025-02-12 08:01 | ER ---
Nurse's Notes [facility] Name: Tracey Mckeon Age: 59 yrs Sex: Female : 1965 Arrival Date: 02/12/2025 Time: 07:31 Bed 9 Private MD: Diagnosis: Urticaria, unspecified Presentation: 02/12 07:52 Chief complaint: Patient states: rash to face that began 2-3 days ago. Coronavirus ss screen: Client denies travel out of the [place] in the last 14 days. Ebola Screen: Patient denies exposure to infectious person. Patient denies travel to an Ebola-affected area in the 21 days before illness onset. Onset: The symptoms/episode began/occurred 3 day(s) ago. Anaphylaxis evaluation, no signs or symptoms of anaphylaxis were noted. Initial Sepsis Screen: Does the patient meet any 2 criteria? No. Patient's initial sepsis screen is negative. Does the patient have a suspected source of infection? No. Patient's initial sepsis screen is negative. Risk Assessment: Do you want to hurt yourself or someone else? Patient reports no desire to harm self or others. Onset of symptoms was February 10, 2025. 07:52 Method Of Arrival: Ambulatory ss 07:52 Acuity: ROSA 4 ss Historical: - Allergies: 07:54 Keflex; ss 07:54 Sulfa (Sulfonamide Antibiotics); ss - PMHx: 07:54 diabetes mellitus; Hypercholesterolemia; Hypertensive disorder; Migraine; ss - Infectious Disease History:: Denies. - Social history:: Smoking status: Patient denies any tobacco usage or history of. - Family history:: not pertinent. - Hospitalizations: : No recent hospitalization is reported. Screenin:15 Abuse screen: Denies threats or abuse. Denies injuries from another. Nutritional ss screening: No deficits noted. Tuberculosis screening: Never had TB. Assessment: 08:15 General: Appears in no apparent distress. comfortable, Behavior is calm, cooperative. ss Pain: Complains of pain in right eye and left eye. Neuro: Level of Consciousness is awake, alert, obeys commands, Oriented to person, place, time, situation, Hat Braider are equal bilaterally. Respiratory: Airway is patent Respiratory effort is even, unlabored, Respiratory pattern is regular, symmetrical. EENT: Oral mucosa is moist. Derm: Skin is intact, is healthy with good turgor, Skin is pink, warm \T\ dry. normal. Vital Signs: 07:52 BP 121 / 80; Pulse 74; Resp 16; Temp 97.8(O); Pulse Ox 97% on R/A; Weight 95.25 kg; ss Height 5 ft. 2 in. ; Pain 10/10; 07:52 Body Mass Index 38.41 (95.25 kg, 157.48 cm) ss 07:52 Pain Scale: Adult ED Course: 07:36 Patient arrived in ED. gl 07:37 Christopher Lundberg MD is Attending Physician. rn 07:54 Triage completed. ss 07:54 Arm band placed on right wrist. ss 08:05 Lin Luis, HAVEN is Primary Nurse. ss 08:13 No provider procedures requiring assistance completed. Patient did not have IV access ss during this emergency room visit. 08:15 Patient has correct armband on for positive identification. Bed in low position. ss Administered Medications: 08:03 Drug: MethylPREDNISolone Sodium Succinate IM 125 mg IM once Route: IM; Site: left ss gluteus; 08:13 Follow up: Response: No adverse reaction; Medication Administered at Departure ss 08:03 Drug: hydrOXYzine PO 25 mg PO once Route: PO; ss 08:12 Follow up: Response: Medication Administered at Departure 08:06 Drug: HYDROcodone-acetaminophen PO 5 mg-325 mg 1 tabs PO once Route: PO; ss 08:12 Follow up: Response: Medication Administered at Departure Medication: 08:15 VIS not applicable for this client. Outcome: 08:01 Discharge ordered by . rn 08:13 Discharged to home ambulatory, 08:13 Condition: good 08:13 Discharge instructions given to patient, Instructed on discharge instructions, follow up and referral plans. medication usage, Demonstrated understanding of instructions, follow-up care, medications, Prescriptions given X 2, 08:16 Patient left the ED. Signatures: Christopher Lundberg MD MD rn Blanchard, Shelby, RN RN Kathleen Martinez, Reg Reg gl
--- NOTE | 2025-02-12 08:02 | EDPHYS ---
Physician Documentation [facility] Name: Tracey Mckeon Age: 59 yrs Sex: Female : 1965 Arrival Date: 02/12/2025 Time: 07:31 Bed 9 Private MD: ED Physician Christopher Lundberg HPI: 02/12 07:59 This 59 yrs old Female presents to ER via Ambulatory with complaints of Hives. rn 07:59 Patient reports had her second shingles vaccination a few days ago, has noticed the rn facial swelling and redness. No fever or chills. No trouble breathing. Rash on upper chest as well. Thinks this happened last time she got shingles vaccine. [id number] medication not helping at home.. Historical: - Allergies: 07:54 Keflex; ss 07:54 Sulfa (Sulfonamide Antibiotics); ss - PMHx: 07:54 diabetes mellitus; Hypercholesterolemia; Hypertensive disorder; Migraine; ss - Infectious Disease History:: Denies. - Social history:: Smoking status: Patient denies any tobacco usage or history of. - Family history:: not pertinent. - Hospitalizations: : No recent hospitalization is reported. ROS: 07:59 Constitutional: Negative for fever, chills, and weight loss, Eyes: Positive for rn periorbital swelling and redness Neck: Negative for injury, pain, and swelling, Cardiovascular: Negative for chest pain, palpitations, and edema, Respiratory: Negative for shortness of breath, cough, wheezing, and pleuritic chest pain, Abdomen/GI: Negative for abdominal pain, nausea, vomiting, diarrhea, and constipation, Back: Negative for injury and pain, MS/Extremity: Negative for injury and deformity, Skin: Positive for hives and itching Neuro: Negative for headache, weakness, numbness, tingling, and seizure, Exam: 07:59 Constitutional: This is a well developed, well nourished patient who is awake, alert, rn and in no acute distress. Ambulatory to triage without assistance or distress, talking on phone while ambulating. Eyes: Bilateral periorbital mild edema. No warmth. ENT: No oral lesions or stridor Respiratory: Speaking full sentences, unlabored. Skin: Sparse urticaria to face and neck and upper chest. Vital Signs: 07:52 BP 121 / 80; Pulse 74; Resp 16; Temp 97.8(O); Pulse Ox 97% on R/A; Weight 95.25 kg; ss Height 5 ft. 2 in. ; Pain 10/10; 07:52 Body Mass Index 38.41 (95.25 kg, 157.48 cm) ss 07:52 Pain Scale: Adult ss MDM: 07:37 Medical Screening Exam initiated rn 08:01 Differential diagnosis: urticaria. Data reviewed: vital signs, nurses notes, and as a rn result, I will discharge patient. Counseling: I had a detailed discussion with the patient and/or guardian regarding the historical points, exam findings, and any diagnostic results supporting the discharge/admit diagnosis, the need for outpatient follow up, to return to the emergency department if symptoms worsen or persist or if there are any questions or concerns that arise at home. Special discussion: I discussed with the patient/guardian in detail that at this point there is no indication for admission to the hospital. It is understood, however, that if the symptoms persist or worsen the patient needs to return immediately for re-evaluation. Administered Medications: 08:03 Drug: MethylPREDNISolone Sodium Succinate IM 125 mg IM once Route: IM; Site: left ss gluteus; 08:13 Follow up: Response: No adverse reaction; Medication Administered at Departure 08:03 Drug: hydrOXYzine PO 25 mg PO once Route: PO; ss 08:12 Follow up: Response: Medication Administered at Departure 08:06 Drug: HYDROcodone-acetaminophen PO 5 mg-325 mg 1 tabs PO once Route: PO; ss 08:12 Follow up: Response: Medication Administered at Departure Disposition Summary: 02/12/25 08:01 Discharge Ordered Notes: Location: Home rn Problem: new rn Symptoms: are unchanged rn Condition: Stable rn Diagnosis - Urticaria, unspecified rn Followup: rn - With: Private Physician - When: As needed - Reason: Recheck today's complaints, Re-evaluation by your physician Discharge Instructions: - Discharge Summary Sheet devante Goel rn Forms: - Medication Reconciliation Form rn - Antibiotic rn ccu - Prescription Opioid Use rn - Patient Portal Instructions rn - Leadership Thank You Letter rn Prescriptions: - Hydroxyzine HCl 50 mg Oral Tablet - take 1 tablet ORAL route every 8 hours As needed; 20 tablet; Refills: 0, rn Product Selection Permitted - Medrol (Riley) 4 mg Oral Tablets, Dose Pack - take 1 tablet ORAL route as directed - follow package instructions; 1 packet; rn Refills: 0, Product Selection Permitted Signatures: Christopher Lundberg MD MD rn Blanchard, Shelby, RN RN ss
[2025-02-12 08:42] VITALS: BP 121/80; TEMP 97.8; O2SAT 97
== END 2025-02-12 08:16 | disposition home or self-care (01) ==
LOC: ER 07:31
DX: L50.9 Urticaria, unspecified (principal)
CPT/HCPCS: 96372; 99284; J2919